=== PATIENT | female | born 2000 ===

== ENCOUNTER 2022-01-23 19:56 | Emergency (ER) | payer MEDICAID | END 2022-01-24 17:39 | disposition left against medical advice (07) | LOC: ED 19:56 | DX: T14.8XXA Other injury of unspecified body region, initial encounter (principal); Z53.21 Procedure and treatment not carried out due to patient leaving prior to being seen by health care provider; W54.0XXA Bitten by dog, initial encounter; Y93.89 Activity, other specified; Y92.89 Other specified places as the place of occurrence of the external cause; Y99.8 Other external cause status ==